=== PATIENT | male | born 2000 | race African-American/Black ===

== ENCOUNTER 2022-09-13 03:21 | Emergency (ER) | payer OTHER, SELFPAY ==
--- NOTE | ~2022-09-13 | US_ITS ---
EXAMINATION: US SCROTUM CLINICAL INFORMATION: Rule out left testicular torsion. COMPARISON: None available. TECHNIQUE: A sonogram of the scrotum was performed assessing potts-scale appearance and color Doppler flow. Spectral Doppler analysis of the arterial and venous flow were performed in the testes bilaterally. FINDINGS: RIGHT: Right testicle measures 4.6 x 2.2 x 2.9 cm, volume 15 mL. No focal testicular parenchymal lesions are visualized. Spectral Doppler analysis of the arterial and venous flow is normal in the right testis. Right epididymal head is normal in size. No right varicocele is seen. Trace right hydrocele. Right epididymal Doppler flow is normal. LEFT: Left testicle measures 3.5 x 1.9 x 2.9 cm, volume 10 mL. No focal testicular parenchymal lesions are visualized. Spectral Doppler analysis of the arterial and venous flow is normal in the left testis. There is prominent soft tissue with Doppler increased flow in the region of the epididymis, suspicious for epididymitis. No left varicocele is seen. Trace left hydrocele. US/US scrotum doppler IMPRESSION: 1. No evidence of testicular torsion. 2. Prominent soft tissue with increased flow in the region of the left epididymis, suspicious for left epididymitis. Follow-up recommended to assess for resolution. 3. Trace bilateral hydroceles.
--- NOTE | ~2022-09-13 | US_ITS ---
EXAMINATION: US SCROTUM CLINICAL INFORMATION: Rule out left testicular torsion. COMPARISON: None available. TECHNIQUE: A sonogram of the scrotum was performed assessing potts-scale appearance and color Doppler flow. Spectral Doppler analysis of the arterial and venous flow were performed in the testes bilaterally. FINDINGS: RIGHT: Right testicle measures 4.6 x 2.2 x 2.9 cm, volume 15 mL. No focal testicular parenchymal lesions are visualized. Spectral Doppler analysis of the arterial and venous flow is normal in the right testis. Right epididymal head is normal in size. No right varicocele is seen. Trace right hydrocele. Right epididymal Doppler flow is normal. LEFT: Left testicle measures 3.5 x 1.9 x 2.9 cm, volume 10 mL. No focal testicular parenchymal lesions are visualized. Spectral Doppler analysis of the arterial and venous flow is normal in the left testis. There is prominent soft tissue with Doppler increased flow in the region of the epididymis, suspicious for epididymitis. No left varicocele is seen. Trace left hydrocele. US/US scrotum IMPRESSION: 1. No evidence of testicular torsion. 2. Prominent soft tissue with increased flow in the region of the left epididymis, suspicious for left epididymitis. Follow-up recommended to assess for resolution. 3. Trace bilateral hydroceles.
[2022-09-13 03:25] VITALS: BP 124/74; PULSE 74; RESP 18; TEMP 36.6; O2SAT 98; BMI 30.5
[2022-09-13 03:33] VITALS: BP 134/66; PULSE 75; RESP 17; TEMP 37; O2SAT 97
--- NOTE | 2022-09-13 03:50 | ED.MALEGU ---
HPI - Male Genitourinary General Chief complaint: Urogenital-Male Stated complaint: testicle swelling lump pain Time Seen by Provider: 09/13/22 03:38 Source: patient Mode of arrival: ambulatory Limitations: no limitations History of Present Illness HPI Narrative: Patient comes to the emergency room complaining of left testicular pain that started approximately 20 hours ago. Patient denies any injury. Patient states that the pain started out mild, patient went to work out, the work. Throughout the day, the pain became worse and constant. Patient denies any injury, denies UTI symptoms. Denies fever or chills. Related Data Previous Rx's Medication Instructions Recorded ibuprofen 600 mg tablet 600 mg PO TID PRN fever or pain 09/13/22 #20 tabs levofloxacin 500 mg tablet 500 mg PO DAILY #9 tabs 09/13/22 Allergies Allergy/AdvReac Type Severity Reaction Status Date / Time No Known Allergies Allergy Verified 09/13/22 03:43 Review of Systems Review of Systems: Constitutional : No Weight loss, No Fever, No Chills, No Night Sweats, No Fatigue, No Malaise ENT/Mouth : No Hearing loss, No Ear Pain, No Nasal Congestion, No Sinus Pain, No Hoarseness, No sore throat, No Rhinorrhea, No Swallowing Difficulty Eyes: No Eye Pain, No Swelling, No Redness, No Foreign Body, No Discharge, No Vision Changes Cardiovascular : No Chest Pain, No SOB, No Dyspnea on Exertion, No Orthopnea, No Edema, No Palpitations Respiratory : No Cough, No Sputum, No Wheezing, No Smoke Exposure, No Dyspnea Gastrointestinal : No Nausea, No Vomiting, No Diarrhea, No Constipation, No abdominal Pain, No Hematochezia, No Melena Genitourinary : Complaining of left testicular pain, No Dysuria, No Urinary Frequency, No Hematuria, No Urinary Incontinence, No Urgency, No Flank Pain, No Urinary Flow Changes, No Hesitancy Musculoskeletal : No joint pain, No Myalgias, No Joint Swelling Skin : No Skin Lesions, No rash Neuro : No Weakness, No Numbness, No Paresthesias, No Loss of Consciousness, No Dizziness, No Headache Psych : No Anxiety/Panic, No Depression, No SI/HI/AH/VH, No Social Issues, Heme/Lymph: No Bruising, No Bleeding,No Lymphadenopathy Endocrine : No Polyuria, No Polydipsia, No Temperature Intolerance PMFSH Social History Social History Advance Directives: No Advance Directives Information Provided: Yes Physical Exam Vital Signs: Vital Signs: Last Vital Signs Temp 98.6 F 09/13/22 03:33 Pulse 75 09/13/22 03:33 Resp 17 09/13/22 03:33 BP 134/66 09/13/22 03:33 Pulse Ox 97 09/13/22 03:33 O2 Del Method Room Air 09/13/22 03:33 BMI result Body Mass Index 30.5 Const: Other: Appearance: Alert. Oriented X3. No acute distress. Eyes: Pupils equal, round and reactive to light. ENT: Pharynx normal. Neck: Normal inspection. Neck supple. No lymph nodes noted. No crepitus CVS: Normal heart rate and rhythm. Pulses normal. Normal S1 and S2 Respiratory: No respiratory distress. Breath sounds normal. No Wheezing. No rales Abdomen: Soft and nontender. No rigidity. No distention. : Normal , normal male genitalia, no pain to palpation in the inguinal canals bilaterally, no pain to palpation on the right testicle a minimal discomfort on the left testicle. No discoloration Skin: Skin warm and dry. Normal skin color. Normal skin turgor. Extremities: No lower extremity edema. No Lacerations. No Rash Neuro: Oriented X 3. No motor deficit. No sensory deficit. Moving all extremities. No slurred speech. CN 2 through 12 grossly intact Psych: calm, cooperative, normal affect Medical Decision Making Medical Decision Making MDM Narrative: -based on physical exam, testicular torsion is not suspected -ultrasound pending. Serology for gonorrhea and chlamydia pending -I discussed the ultrasound results with the patient, no testicular torsion, patient likely has epididymitis. No concerns for STD. Patient was given the 1st dose of antibiotics, levofloxacin in the ED. Differential Diagnosis Differential Diagnoses: The differential diagnosis associated with the presentation includes (Epididymitis, inguinal ligament pain, testicular torsion, contusion) Discharge Plan Discharge Clinical Impression: Acute epididymitis Patient Disposition: Home, Self-Care Instructions: Epididymitis (ED) Additional Instructions: Please follow-up with your primary care physician tomorrow. If you have any worsening or new symptoms, please return to the emergency room or call 911 Prescriptions: New levofloxacin 500 mg tablet 500 mg PO DAILY Qty: 9 0RF ibuprofen 600 mg tablet 600 mg PO TID PRN (Reason: fever or pain) Qty: 20 0RF Stand Alone Forms: Work/School Release
--- NOTE | 2022-09-13 04:26 | PC.NURSE ---
Ultrasound at bedside.
[2022-09-13] MEDS: levoFLOXacin 500 MG TABLET PO (05:24)
[2022-09-13 07:44] LABS: CT PCR DETECTED (Not Detect.); NG PCR NOT DETECTED (Not Detect.)
== END 2022-09-13 05:34 | disposition home or self-care (01) ==
PROVIDERS: Emergency Provider Emergency Medicine
DX: N45.1 Epididymitis (principal); A56.19 Other chlamydial genitourinary infection; N50.812 Left testicular pain; R10.2 Pelvic and perineal pain
CPT/HCPCS: 0353U; 76870; 93975; 99284